=== PATIENT | male | born 1995 | race Caucasian/White ===

== ENCOUNTER 2019-03-17 11:37 | Emergency (ER) | payer OTHER ==
[~2019-03-17] VITALS: Ht 172.7 cm; Wt 77.3 kg
[2019-03-17 11:39] VITALS: BP 148/79; PULSE 90; TEMP 98.1
== END 2019-03-17 12:41 | disposition home or self-care (01) ==
LOC: COL.ER 11:37
DX: S61.512A Laceration without foreign body of left wrist, initial encounter (principal); W26.8XXA Contact with other sharp object(s), not elsewhere classified, initial encounter